=== PATIENT | female | born 1975 | race Caucasian/White ===

== ENCOUNTER 2018-11-19 17:50 | Emergency (ER) | payer OTHER, SELFPAY ==
--- NOTE | 2018-11-19 19:48 | RAD ---
TWO VIEW CHEST: 11/19/18 COMPARISON: 09/20/14. INDICATION: Cough. FINDINGS: Mild linear density at left lung base is present, similar appearing and therefore may relate to scar. There is an electronic lead overlying the thoracic spine. The cardiac silhouette is of normal size. No free air. Chest is otherwise similar. IMPRESSION: 1. Stable linear density at the left lower lung which may relate to scar. 2. No lobar consolidation. POS: [facility]
== END 2018-11-19 20:20 | disposition home or self-care (01) ==
LOC: ERS 17:50
DX: J06.9 Acute upper respiratory infection, unspecified (principal); F32.9 Major depressive disorder, single episode, unspecified
CPT/HCPCS: 71046; 87804

== ENCOUNTER 2019-03-23 14:27 | Outpatient (CLI) | payer OTHER ==
--- NOTE | 2019-03-23 14:58 | RAD ---
LUMBAR SPINE TWO VIEWS: 03/23/19 HISTORY: Spinal cord stimulator status. Left sided spinal cord stimulator device. Stimulator wires are noted extending up to the T10 level al though the most cranial portion of these is not included on this study. Minimal disc osteophytosis. N o acute fracture or dislocation or malalignment. IMPRESSION: Mild lumbar spine spondylosis. Dorsal column stimulator leads are only partially visualized extending up to at least the T10 level. Probable laminectomy at T10. POS: OFF
== END 2019-03-23 14:28 | disposition home or self-care (01) ==
LOC: BICRAD 14:27
PROVIDERS: ATTEND Family Medicine
DX: Z48.811 Encounter for surgical aftercare following surgery on the nervous system (principal); M47.816 Spondylosis without myelopathy or radiculopathy, lumbar region; Z96.89 Presence of other specified functional implants
CPT/HCPCS: 72100

== ENCOUNTER 2019-06-02 12:30 | Outpatient (CLI) | payer OTHER ==
--- NOTE | 2019-06-02 13:54 | RAD ---
THORACIC SPINE 2 VIWES: HISTORY: Back pain. Evaluate spinal cord stimulator. COMPARISON: 06/08/2015. FINDINGS: There are 12 thoracic-type vertebrae. Pedicles are intact. Vertebral body heights and alignment are maintained. Metallic leads associated with a dorsal column stimulator enter the posterior aspect of the thoracic spinal canal at the T10-11 level and ascend along the posterior aspect of the central canal to the T8 level where they overlie the midline. Visualized portions of the wires are intact. IMPRESSION: No acute osseous abnormalities demonstrated. Dorsal column stimulator leads are in good radiographic position. POS: [facility]
== END 2019-06-02 12:31 | disposition home or self-care (01) ==
LOC: BICRAD 12:30
PROVIDERS: ATTEND Family Medicine
DX: Z46.2 Encounter for fitting and adjustment of other devices related to nervous system and special senses (principal); Z96.89 Presence of other specified functional implants
CPT/HCPCS: 72070

== ENCOUNTER 2019-10-08 09:31 | Emergency (ER) | payer OTHER ==
--- NOTE | 2019-10-08 10:28 | CT ---
Exam: CT brain PROVIDED CLINICAL HISTORY: Head pain status post injury COMPARISON: 09/20/2014 FINDINGS: The ventricular system is normal in size and morphology. No evidence for intracranial hemorrhage or mass effect. The extracranial soft tissues and osseous structures demonstrate no evidence for an acute abnormality. IMPRESSION: No evidence for intracranial hemorrhage or mass effect.
--- NOTE | 2019-10-08 10:29 | CT ---
EXAM: CT cervical spine PROVIDED CLINICAL HISTORY: Neck pain status post injury COMPARISON: None FINDINGS: No evidence for fracture or traumatic subluxation. No prevertebral soft tissue swelling apparent. Vi sualized lung apices appear clear. IMPRESSION: No evidence for fracture or traumatic subluxation.
== END 2019-10-08 11:20 | disposition home or self-care (01) ==
LOC: ERS 09:31
DX: S06.0X9A Concussion with loss of consciousness of unspecified duration, initial encounter (principal); S16.1XXA Strain of muscle, fascia and tendon at neck level, initial encounter; G44.209 Tension-type headache, unspecified, not intractable; F32.9 Major depressive disorder, single episode, unspecified; Z79.899 Other long term (current) drug therapy; W19.XXXA Unspecified fall, initial encounter
CPT/HCPCS: 70450; 72125

== ENCOUNTER 2020-02-28 06:08 | Outpatient (CLI) | payer OTHER ==
[2020-02-28 10:42] LABS: Hemoglobin 13.6 g/dL (12.0-16.0); Mean Corpuscular HGB CONC 32.4 g/dL (32.0-36.0); Mean Corpuscular Volume 92.6 fL (78.0-98.0); Mean Platelet Volume 8.3 fL (7.4-10.4); Platelet Count 259 thou/uL (130-400); RBC Distribution Width 11.2 % (11.5-14.5); Red Blood Cell (RBC) Count 4.53 mill/uL (4.20-5.40); White Blood Cell (WBC) Count 7.5 thou/uL (4.8-10.8)
[2020-02-28 10:57] LABS: Anion Gap 13 mmol/L (10-20); BUN (Urea Nitrogen) 14 mg/dL (7.0-18.7); Calc. Creatinine Clearance 0 mL/min (70-130); Calcium 9.1 mg/dL (7.8-10.44); Carbon Dioxide 22 mmol/L (22-29); Chloride 109 mmol/L (98-107); Estimated GFR-MDRD 86; Glucose 136 mg/dL (70-105); Potassium 3.5 mmol/L (3.5-5.1); Sodium 140 mmol/L (136-145)
--- NOTE | 2020-02-28 16:12 | EKG ---
Test Reason : Blood Pressure : / mmHG Vent. Rate : 074 BPM Atrial Rate : 074 BPM P-R Int : 170 ms QRS Dur : 076 ms QT Int : 376 ms P-R-T Axes : 040 080 063 degrees QTc Int : 417 ms Normal sinus rhythm Normal ECG When compared with ECG of 20-SEP-2014 23:39, No significant change was found Confirmed by DR. Lauren PAYNE MD ([id number]) on 02/28/2020 4:11:53 PM Referred By: LEIGH Confirmed By:DR. Lauren PAYNE MD
[2020-02-28 18:12] LABS: SARS-CoV-2 MS2 Positive; SARS-CoV-2 N Gene Negative; SARS-CoV-2 S Gene Negative; SARS-CoV-2 orf1ab Negative
== END 2020-02-28 06:09 | disposition home or self-care (01) ==
LOC: LABBT 06:08
PROVIDERS: ATTEND Neurological Surgery
DX: Z01.818 Encounter for other preprocedural examination (principal); Z11.59 Encounter for screening for other viral diseases; M54.16 Radiculopathy, lumbar region
CPT/HCPCS: 80048; 85027; 87635; 93005; 93010; U0003

== ENCOUNTER 2021-07-18 11:06 | Outpatient (CLI) | payer OTHER | END 2021-07-18 11:07 | disposition home or self-care (01) | LOC: SCSRAD 11:06 | PROVIDERS: ATTEND Physician Assistant | DX: M79.644 Pain in right finger(s) (principal) ==

== ENCOUNTER 2021-07-31 06:53 | Outpatient (CLI) | payer OTHER ==
[2021-07-31] MEDS ORDERED: Magnevist 469MG/ML 20 ML VIAL ONE (16:15)
== END 2021-07-31 06:54 | disposition home or self-care (01) ==
LOC: BICMRI 06:53
PROVIDERS: ATTEND Physician Assistant
DX: M79.644 Pain in right finger(s) (principal); M85.80 Other specified disorders of bone density and structure, unspecified site